=== PATIENT | female | born 1965 | race African-American/Black ===

== ENCOUNTER 2017-04-05 14:36 | Inpatient (IN) | payer OTHER ==
--- NOTE | ~2017-04-05 | HP ---
History And Physical [address] [place]. [address] NAME: DAVE MARTINS ANGELIA : 61 STATUS : ADM IN [facility]#: [id number] AGE: 51 ADM/REG DATE : 04/05/17 MR#: [id number] REPORT SERV DATE: 04/05/17 DICTATED BY: NATHANAEL HEADLEY DATE: 04/05/17 REPORT STATUS : Draft TRANSCRIBED BY: MODRemy DATE: 04/05/17 DATE OF ADMISSION: 04/05/2017 CHIEF COMPLAINT: A 51-year-old female, presenting with uncontrolled diabetes and chest pain. HISTORY OF PRESENTING ILLNESS: The patient's history was obtained through careful interview with the patient, coupled with review of [facility] medical records. The patient has noted for a few days that she has had elevated blood sugars despite being on her standard insulin pump. Most of her blood sugars have been in excess of 300. But it has just been in these last two days that she has had extreme fatigue and then has developed polyuria and polydipsia. Yesterday, she developed overt nausea and vomiting and today, she tried to take extra boluses of insulin with no help. Her morning blood sugar was 382 and has been persistently over 300 throughout the day. She describes chest discomfort, new onset, today in the middle of her chest without radiation, a dull aching quality, 5 to 6 out of 10 severity that has persisted into the emergency department. Even at the time of my evaluation, it is about 3/10 severity. She has had associated shortness of breath and dyspnea, but no further nausea. No lightheadedness. No fevers or chills. No cough. She had one solitary episode of diarrhea yesterday. REVIEW OF SYSTEMS: Otherwise, a 14-point review of systems was obtained and was negative. PAST MEDICAL HISTORY: 1. Type 1 diabetes, diagnosed more than 30 years ago, on insulin pump. 2. Retinopathy. 3. Neuropathy. 4. Proteinuria. 5. Depression and anxiety. 6. Gastroesophageal reflux disorder. 7. Hypertension. 8. Urinary tract infection. 9. No cardiac disease. No lung disease. PAST SURGICAL HISTORY: 1. Hysterectomy. 2. x2. ALLERGIES: NO KNOWN DRUG ALLERGIES. History And Physical [address] 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 She lives with her boyfriend. Is single. Has two children. Has grandchildren. No history of tobacco abuse. No alcohol use at all. FAMILY HISTORY: Diabetes. CURRENT MEDICATIONS: Include an insulin pump, Lipitor 10 mg p.o. daily, vitamin D, Diflucan 150 mg p.o. daily, Cozaar 50 mg p.o. daily, and Januvia 100 mg every morning. PHYSICAL EXAMINATION: VITAL SIGNS: Temperature 97.7, pulse 93, blood pressure 105/96, respiratory rate 16, and O2 saturation 99% on room air. GENERAL: A pleasant, cooperative female, in no evidence of acute distress at this time. HEENT: Pupils equal, round, and reactive to light. No conjunctival pallor. No scleral icterus. Nares are patent. Oropharynx is clear of obstruction. Very dry mucous membranes with cracking of the lips and tongue. NECK: Trachea midline. No thyromegaly. LYMPH: No cervical lymphadenopathy. No supraclavicular lymphadenopathy. RESPIRATORY: Clear to auscultation at bases. No wheezes, rales, or rhonchi. Normal respiratory effort. CARDIOVASCULAR: Regular rate and rhythm. No murmurs, rubs, or gallops. No current extremity edema is appreciated. ABDOMEN: Completely soft, nontender, nondistended. No hepatosplenomegaly. DERMATOLOGICAL: Warm and dry. EXTREMITIES: No pallor, no cyanosis. PSYCHIATRIC: Normal affect. Good mood. Alert and oriented x3. LABORATORY DATA: White blood cell count 10.5, hemoglobin 12, hematocrit 38, platelets 319. Sodium 131, potassium 4.9, chloride 97, bicarb 16, BUN 23, creatinine 1.0, glucose 444, troponin 0.11. Liver enzymes within normal limits. Acetone level is positive. STUDIES: EKG by my own evaluation shows sinus tachycardia. ASSESSMENT AND PLAN: 1. Diabetic ketoacidosis with a positive acetone level and bicarb of 16. Remove insulin pump and start on IV insulin drip, and place on aggressive IV fluids. Check a hemoglobin A1c. Obtain a compliance and control analyst consult. Q.6 hour basic metabolic panel, magnesium, and phosphorus. Monitor on telemetry bed for now. 2. Non ST-elevation myocardial infarction with troponin of 0.11 and new-onset chest pain. Negative EKG for any changes. We will start a heparin drip IV and aspirin, and consult Cardiology for the morning of 04/06/2017. [facility] History And Physical [place] [id number] [facility] [place]. [address] NAME: DAVE MARTINS : 61 STATUS : ADM IN [facility]#: [id number] AGE: 51 ADM/REG DATE : 04/05/17 MR#: [id number] REPORT SERV DATE: 04/05/17 DICTATED BY: NATHANAEL HEADLEY DATE: 04/05/17 REPORT STATUS : Draft TRANSCRIBED BY: YASEMIN DATE: 04/05/17 Nathanael Headley M.D. / [id number] CC: Delma Mccoy M.D.
--- NOTE | ~2017-04-05 | PRECARD ---
H&P [facility] [address] [place]. [address] NAME: DAVE MARTINS : 61 STATUS : ADM IN [facility]#: [id number] AGE: 51 ADM/REG DATE : 04/05/17 MR#: [id number] REPORT SERV DATE: 04/06/17 DICTATED BY: DIANA VYAS DATE: 04/06/17 REPORT STATUS : Draft TRANSCRIBED BY: YASEMIN DATE: 04/06/17 DATE OF ADMISSION: 04/05/2017 Ms. Leigh Ann Licea is a 51-year-old woman, admitted with diabetic ketoacidosis. Cardiology is consulted for a troponin level of 0.1. Ms. Licea describes a 30-year history of diabetes. She has an insulin pump. Her blood sugars have been more than 300 for the last three or four days, prompting admission through the emergency room. Ms. Licea described having an episode of chest discomfort three days prior to presentation. She described having fullness in the chest, felt like she needed to burp, she drank a bottle of Coca-Cola, that discomfort resolved. She tells me she has had no further discomfort since that episode of discomfort prior to admission, which was resolved after drinking a Coca-Cola soda. The medical records indicate that she describes having chest discomfort on admission. I discussed this again with her, she states she has had no discomfort since that initial episode three days prior to presentation. She also denies orthopnea or PND. She has had no palpitations. She does describe a history of hypertension. She has no history of tobacco use. PAST MEDICAL HISTORY: Diabetes, retinopathy, neuropathy, hypertension. MEDICATIONS ON ADMISSION: Lipitor, vitamin D, Diflucan, insulin, losartan, Januvia. SOCIAL HISTORY: She denies tobacco. She is single. 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 FAMILY HISTORY: Positive for diabetes. No definite family history of premature coronary artery disease. REVIEW OF SYSTEMS: Complete review of systems obtained. Negative, remarkable, except as noted above and below. No melena, hemoptysis, or hematochezia. PHYSICAL EXAMINATION: VITAL SIGNS: Blood pressure 110/60, heart rate about 70. GENERAL: Comfortable, in no acute distress. HEENT: No xanthelasma; lips without cyanosis. LUNGS: Clear to auscultation, no wheezes, rales or rhonchi; good breath sounds. COR: No JVD or hepatojugular reflux, no murmurs, rubs or gallops, impulse mid clavicular line without carotid or abdominal bruits; normal S1 and S2. ABDOMEN: Bowel sounds positive, normal activity, without tenderness, masses or H&P PRE [address] [address] NAME: DAVE MARTINS : 61 STATUS : ADM IN [facility]#: [id number] AGE: 51 ADM/REG DATE : 04/05/17 MR#: [id number] REPORT SERV DATE: 04/06/17 DICTATED BY: DIANA VYAS DATE: 04/06/17 REPORT STATUS : Draft TRANSCRIBED BY: YASEMIN DATE: 04/06/17 hepatosplenomegaly. EXTREMITIES: No edema, cyanosis. SKIN: Normal turgor. MS: Normal muscle strength, without kyphosis/scoliosis. NEURO/PSYCH: Alert and oriented x4, no apparent anxiety or depression. LABORATORIES: White count 9.8, hematocrit 34.6, platelet count is 292,000. The BUN was 17, creatinine 0.9, glucose on admission was 444, troponin 0.11. EKG is sinus rhythm with nonspecific ST-T wave changes without ischemia. ASSESSMENT: Ms. Licea is a very nice 51-year-old woman with long history of diabetes, admitted with diabetic ketoacidosis, initial glucose 444 with a bicarbonate of 16. Troponin level of 0.11. EKG showed no ischemia. The CPK was 53, CPK-MB 3.3. She has atypical chest discomfort, does not suggest coronary ischemia. Her EKG is unremarkable. I do not think she has had acute coronary syndrome or myocardial infarction, perhaps this minimally elevated troponin levels related to demand ischemia. We will follow. We will check an echocardiogram to assess her LV function. She is on excellent medical regimen that does include ARB and Lipitor, I will add aspirin. JUSTIN/YASEMIN Diana Vyas M.D. / [id number] CC: Delma Mccoy M.D.
--- NOTE | ~2017-04-05 | DS ---
Discharge Summary [facility] [address] [place]. [address] NAME: DAVE MARTINS : 61 STATUS : DIS IN PAT#: [id number] AGE: 51 ADM/REG DATE : 04/05/17 MR#: [id number] REPORT SERV DATE: 04/07/17 DICTATED BY: EDOUARD MARKS DATE: 04/06/17 REPORT STATUS : Draft TRANSCRIBED BY: MODL DATE: 04/06/17 ADMISSION DATE: 04/05/2017 DISCHARGE DATE: 04/06/2017 PRINCIPAL DIAGNOSIS: Diabetic ketoacidosis and type 1 diabetes. SECONDARY DIAGNOSIS: Demand ischemia. HISTORY OF PRESENT ILLNESS: Please see Dr. Coppola's dictation on 04/05/2017. HOSPITAL COURSE: Admitted with diabetic ketoacidosis due to running out of insulin on her insulin pump. The patient was put on an IV insulin infusion until sugar came down less than 250, IV dextrose was added at that time. Her anion gap closed by mid day. On 04/06/2017 she was able to be resumed back her insulin pump with the assistance of chemical educator. The patient also was found to have an elevated troponin at 0.11, repeating at 0.29 seen by Cardiology, found to have normal echocardiography and was asymptomatic. This was felt to be demand ischemia due to the DKA itself and she was able to be released with a daily aspirin. Otherwise her home medications home pump, but close followup with Dr. Fernando with whom she has an appointment tomorrow. Other medications were unchanged. Greater than 30 minutes were spent in the care of the patient on discharge day. DICTATED BY: Delma Mccoy/YASEMIN Edouard Marks M.D. / [id number] CC: Delma Mccoy M.D. Mark Thel, M.D. David Huffman, M.D.
[~2017-04-05 14:36] MED LIST: ALTACE10 MG PO; INSULIN PUMP; LEXAPRO10 PO; VALTURNA PO
[2017-04-05 18:59] LABS: BASOPHILS 0.2 %; BASOPHILS ABSOLUTE 0.02 10/3/uL (0.0-0.16); EOSINOPHILS 0 %; HEMATOCRIT 38.1 % (36.0-48.0); HEMOGLOBIN 12.5 g/dL (12.0-16.0); IMMATURE GRANULOCYTES 0.2 %; IMMATURE GRANULOCYTES ABSOLUTE 0.02 10/3/uL (0.0-0.11); LYMPHOCYTES 8.8 %; LYMPHOCYTES ABSOLUTE 0.92 10/3/uL (0.67-4.30); MEAN CORPUS HGB CONC 32.8 g/dL (32.0-36.0); MEAN CORPUSCULAR HEMOGLOB 30.8 pg (26.0-34.0); MEAN CORPUSCULAR VOLUME 93.8 fL (80-100); MEAN PLATELET VOLUME 10.3 fL (9.2-13.0); MONOCYTES 1.9 %; NEUTROPHILS 88.9 %; NEUTROPHILS ABSOLUTE 9.29 10/3/uL (2.02-8.40); PLATELET COUNT 319 10/3/uL (150-400); RBC DISTRIBUTION WIDTH 13.5 % (12.0-16.0); RED CELL COUNT 4.06 10/6/uL (4.0-5.6); WHITE BLOOD CELLS 10.5 10/3/uL (4.5-10.5)
[2017-04-05 19:00] LABS: ER CBC TAT 0 Hrs 24 Mins; MANUAL DIFF NO %
[2017-04-05 19:08] LABS: A/G RATIO 1.1 (0.7-1.9); ALKALINE PHOSPHATASE 98 U/L (45-117); BUN (BLOOD UREA NITROGEN) 23 MG/DL (6-23); CALCIUM, SERUM 9.1 MG/DL (8.5-10.4); CHLORIDE, SERUM 97 MMOL/L (96-112); CO2 (CARBON DIOXIDE) 16 MMOL/L (24-34); CREATININE 1.01 MG/DL (0.55-1.02); GFR AFRICAN AMERICAN 74 ML/MIN (>=60); GFR NON AFRICAN AMERICAN 64 ML/MIN (>=60); GLOBULIN 3.7 G/DL (2.5-4.1); POTASSIUM, SERUM 4.9 MMOL/L (3.5-5.3); SGPT(ALT) 27 U/L (5-65); SODIUM, SERUM 131 MMOL/L (135-148); TOTAL BILIRUBIN 1.3 MG/DL (0-1.2); TOTAL PROTEIN 7.7 G/DL (6.0-8.5)
[2017-04-05 19:09] LABS: GLUCOSE, SERUM 444 MG/DL (60-99)
[2017-04-05 19:10] LABS: SGOT(AST) 26 U/L (5-40)
[2017-04-05 19:24] LABS: ACETONE SMALL
[2017-04-05] MEDS ORDERED: HUMAPUMP SC (20:12)
[2017-04-05] MEDS ORDERED: COZ50 PO (20:12)
[2017-04-05] MEDS ORDERED: JANUVIA100 MG PO (20:13)
[2017-04-05] MEDS ORDERED: LIPITOR10 PO (20:13)
[2017-04-05] MEDS ORDERED: FLUCON150 PO (20:19)
[2017-04-05] MEDS ORDERED: VITAMIN D31000 UNIT PO (20:20)
[2017-04-06 03:34] LABS: ASCORBIC ACID (UR NOT ORDER) NEG (NEG); BILIRUBIN, URINE NEGATIVE (NEG); KETONE, URINE 80 MG/DL (NEG); LEUKOCYTE ESTERASE(NOT OR NEG (NEG); WBC (NOT ORDERED) (RFLEX) 2 (0-5)
[2017-04-06 04:57] LABS: BASOPHILS 0.1 %; BASOPHILS ABSOLUTE 0.01 10/3/uL (0.0-0.16); EOSINOPHILS 0.1 %; EOSINOPHILS ABSOLUTE 0.01 10/3/uL (0.0-0.53); HEMATOCRIT 34.6 % (36.0-48.0); IMMATURE GRANULOCYTES 0.2 %; IMMATURE GRANULOCYTES ABSOLUTE 0.02 10/3/uL (0.0-0.11); LYMPHOCYTES ABSOLUTE 2.65 10/3/uL (0.67-4.30); MEAN CORPUSCULAR HEMOGLOB 31.8 pg (26.0-34.0); MEAN CORPUSCULAR VOLUME 91.8 fL (80-100); MEAN PLATELET VOLUME 10.1 fL (9.2-13.0); MONOCYTES 6.8 %; MONOCYTES ABSOLUTE 0.67 10/3/uL (0.21-1.20); NEUTROPHILS 65.8 %; NEUTROPHILS ABSOLUTE 6.45 10/3/uL (2.02-8.40); PLATELET COUNT 292 10/3/uL (150-400); RBC DISTRIBUTION WIDTH 13.4 % (12.0-16.0); RED CELL COUNT 3.77 10/6/uL (4.0-5.6); WHITE BLOOD CELLS 9.8 10/3/uL (4.5-10.5)
[2017-04-06 04:58] LABS: MANUAL DIFF NO %; MEAN CORPUS HGB CONC 34.7 g/dL (32.0-36.0)
[2017-04-06 05:05] LABS: INTERNATIONAL NORMAL RATI 1.1 UNITS (-); PROTIME (NOT ORD) 14.4 SEC (12.0-14.5)
[2017-04-06 05:09] LABS: PARTIAL THROMBO TIME 113.6 SEC (22.5-37.2)
[2017-04-06 05:24] LABS: CHLORIDE, SERUM 106 MMOL/L (96-112); CHOL/HDL RATIO(NOT ORDER) 2.3 (0-5); CHOLESTEROL 126 MG/DL (< 200); CREATININE 0.93 MG/DL (0.55-1.02); GFR AFRICAN AMERICAN 81 ML/MIN (>=60); GFR NON AFRICAN AMERICAN 70 ML/MIN (>=60); HDL CHOLESTEROL 55 MG/DL (> 49); LDL CHOLESTEROL 61 MG/DL (< 130); NON-HDL CHOLESTEROL 71 MG/DL (< 160); SGOT(AST) 16 U/L (5-40); SGPT(ALT) 23 U/L (5-65); SODIUM, SERUM 136 MMOL/L (135-148); TOTAL BILIRUBIN 0.9 MG/DL (0-1.2); TRIGLYCERIDE 52 MG/DL (< 150); ULTRASENSITIVE TSH 0.251 MCIU/ML (0.358-3.740)
[2017-04-06 05:26] LABS: CO2 (CARBON DIOXIDE) 20 MMOL/L (24-34); POTASSIUM, SERUM 3.8 MMOL/L (3.5-5.3)
[2017-04-06 05:27] LABS: ALBUMIN 2.9 G/DL (3.5-5.0); ALKALINE PHOSPHATASE 70 U/L (45-117); BUN (BLOOD UREA NITROGEN) 17 MG/DL (6-23); CALCIUM, SERUM 7.9 MG/DL (8.5-10.4); CK-MB 3.3 NG/ML; CPK 53 U/L (0-200); GLOBULIN 2.9 G/DL (2.5-4.1); GLUCOSE, SERUM 150 MG/DL (60-99); PHOSPHORUS, SERUM 2.4 MG/DL (2.5-4.5); TOTAL PROTEIN 5.8 G/DL (6.0-8.5); TROPONIN I 0.29 NG/ML (<0.05)
[2017-04-06 05:34] LABS: B NATRIURETIC PEPTIDE (BNP) 104.6 PG/ML (< 100.0)
[2017-04-06 10:51] LABS: BUN (BLOOD UREA NITROGEN) 15 MG/DL (6-23); CALCIUM, SERUM 7.8 MG/DL (8.5-10.4); CHLORIDE, SERUM 107 MMOL/L (96-112); CO2 (CARBON DIOXIDE) 22 MMOL/L (24-34); CREATININE 0.91 MG/DL (0.55-1.02); GFR AFRICAN AMERICAN 83 ML/MIN (>=60); GFR NON AFRICAN AMERICAN 72 ML/MIN (>=60); SODIUM, SERUM 136 MMOL/L (135-148)
[2017-04-06 10:52] LABS: GLUCOSE, SERUM 283 MG/DL (60-99)
[2017-04-06 13:25] LABS: BUN (BLOOD UREA NITROGEN) 14 MG/DL (6-23); CHLORIDE, SERUM 107 MMOL/L (96-112); CO2 (CARBON DIOXIDE) 22 MMOL/L (24-34); CREATININE 0.92 MG/DL (0.55-1.02); GFR AFRICAN AMERICAN 82 ML/MIN (>=60); GFR NON AFRICAN AMERICAN 71 ML/MIN (>=60); GLUCOSE, SERUM 261 MG/DL (60-99); POTASSIUM, SERUM 3.6 MMOL/L (3.5-5.3); SODIUM, SERUM 137 MMOL/L (135-148)
[2017-04-06 13:50] LABS: GLYCOHEMOGLOBIN (HbA1c) 8.3 % (4.7-6.1)
[2017-04-06 15:44] LABS: BUN (BLOOD UREA NITROGEN) 14 MG/DL (6-23); CALCIUM, SERUM 8.4 MG/DL (8.5-10.4); CHLORIDE, SERUM 105 MMOL/L (96-112); CO2 (CARBON DIOXIDE) 22 MMOL/L (24-34); CREATININE 1.17 MG/DL (0.55-1.02); GFR AFRICAN AMERICAN 62 ML/MIN (>=60); GFR NON AFRICAN AMERICAN 53 ML/MIN (>=60); GLUCOSE, SERUM 207 MG/DL (60-99); POTASSIUM, SERUM 3.8 MMOL/L (3.5-5.3); SODIUM, SERUM 137 MMOL/L (135-148)
[2017-04-06] MEDS ORDERED: ASAB PO (16:54)
== END 2017-04-06 18:28 | disposition home or self-care (01) | DRG 638 ==
LOC: ER 14:36 → 6NO 20:35
PROVIDERS: Emergency Medicine; Internal Medicine
DX: E10.10 Type 1 diabetes mellitus with ketoacidosis without coma (principal); I24.8 Other forms of acute ischemic heart disease; E10.40 Type 1 diabetes mellitus with diabetic neuropathy, unspecified; N39.0 Urinary tract infection, site not specified; I10 Essential (primary) hypertension; E10.319 Type 1 diabetes mellitus with unspecified diabetic retinopathy without macular edema; F32.9 Major depressive disorder, single episode, unspecified; F41.9 Anxiety disorder, unspecified; K21.9 Gastro-esophageal reflux disease without esophagitis; Z79.4 Long term (current) use of insulin; Z96.41 Presence of insulin pump (external) (internal); Z90.710 Acquired absence of both cervix and uterus; Z83.3 Family history of diabetes mellitus
CPT/HCPCS: 80048; 80053; 80061; 81001; 82009; 82550; 82553; 82962; 83036; 83605; 83735; 83880; 84100; 84443; 84484; 85025; 85610; 85730; 93005; 93306; 96374; 96375; 99285; A9270-GY; J2405